=== PATIENT | female | born 1955 | race African-American/Black ===

== ENCOUNTER 2017-03-27 16:01 | Emergency (ER) | payer MEDICARE, MEDICAID ==
[~2017-03-27] VITALS: Ht 170.2 cm; Wt 83.0 kg
[~2017-03-27 16:01] MED LIST: ACET-182 PO; ACET325T9 PO; ACYC400T PO; ALBU2.5V5 NEB; ALPR1TAB2 PO; ALPR1TAB6 PO; AMIO200T2 PO; AMLO5TAB4 PO; ASPI-482 PO; ASPI325T11 PO; ASPI325T70 PO; ATOR40TA59 PO; ATROVENT HFA12.9 GM IH; BENZ100C15 PO; BISA10SU55 RC; BISM262O PO; BUDE0.5A NEB; CARV25TA PO; CARV25TA2 PO; CHOL100013 PO; CHOL10003 PO; CHOL500021 PO; CHOL500050 PO; CLOP75TA PO; DICL100G18 TP; DOCU100C28 PO; ESCITALOPRAM OX10 MG PO; FAMO20TA5 PO; FENT1PAT17 TP; FLUT12HF2 IH; FLUT9.9S NS; FURO80TA72 PO; GABA-585 PO; GUAI5SYR PO; IPRA3AMP NEB; LAMO25TA5 PO; LEVO25TA4 PO; LEVO50TA5 PO; LISI2.5T PO; LOVA40TA2 PO; MAG360OR24 PO; METH4TAB2 PO; METH4TAB6 PO; NA P133E2 RC; NICO10CA IH; NICO1PAT21 TD; NITR0.4T22 SL; NITR1PAT9 TD; OMEG1CAP6 PO; OMEP20CA9 PO; OXYC-327 PO; OXYC1TAB7 PO; OXYC1TAB8 PO; PNV1TABL25 PO; POLY17PO3 PO; POTA20TA4 PO; POTA20TA82 PO; POTA20TA84 PO; PROVENTIL HFA6.7 GM IH; QUET50TA5 PO; ROFL500T7 PO; SPIR25TA3 PO; TIOT18CA IH; TORS10TA3 PO; TORS20TA2 PO; TRIA15OI9 TP
[2017-03-27 16:30] VITALS: BP 122/69
[2017-03-27] MEDS ORDERED: LIDOCAINE 1% / SOD BICARB 8.4% 20 ML VIAL. IJ ONE (16:45)
[2017-03-27] MEDS ORDERED: fentaNYL PF VIAL 100 MCG/2 ML VIAL IM ONE (17:45)
--- NOTE | 2017-03-27 17:51 | PHYS DOC ---
Past Medical History Past Medical History: A-Fib, Anxiety, Asthma, CHF, Constipation, COPD, Depression, DVT, Hypertension, Hypothyroid, Renal Failure Additional Past Medical Histor: Aspiration PNA, resp.failure,A-flutter, dysphagia,Cardiac arrest, HERPES Past Surgical History: Hysterectomy, Pacemaker, Tonsillectomy, Other Additional Past Surgical Histo: Defibrillator, right BKA Alcohol Use: None Drug Use: None Social History Narrative: PT REPORTS FORMER COCAINE USE Adult General Chief Complaint Chief Complaint: ABSCESS HPI HPI Patient is a 62 year old female with history of depression, hypertension, COPD , 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 Patient states she's had a cyst there for 4 years. Patient states for the last 3 days the area has turned red and more swollen. Review of Systems Review of Systems Constitutional: Denies fever or chills [] Musculoskeletal: Denies back pain or joint pain [] Integument: left shoulder abscess. Neurologic: Denies headache, focal weakness or sensory changes [] Current Medications Current Medications Current Medications Medications (Trade) Dose Ordered Sig/Karl Start Time Stop Time Status Last Admin Dose Admin Ceftriaxone Sodium (Rocephin Im) 1 gm 1X ONCE 03/27/17 18:00 03/27/17 18:01 Fentanyl Citrate (Fentanyl 2ml Vial) 50 mcg 1X ONCE 03/27/17 17:45 03/27/17 17:46 DC 03/27/17 17:45 50 MCG Lidocaine HCl 20 ml 1X ONCE 03/27/17 18:00 03/27/17 18:01 Lidocaine/Sodium Bicarbonate (Buffered Lidocaine 1%) 20 ml 1X ONCE 03/27/17 16:45 03/27/17 16:46 DC 03/27/17 16:51 20 ML Allergies Allergies Allergies Coded Allergies Type Severity Reaction Last Updated Verified adhesive Allergy Intermediate 04/11/15 Yes Physical Exam Physical Exam Constitutional: Well developed, well nourished, no acute distress, non-toxic appearance. [] Skin: Left scapular with an abscess approximately 2 x 2 centimeters. The area is erythematous warm tender to palpate and very fluctuant. Back: No tenderness, no CVA tenderness. [] Extremities: No tenderness, no cyanosis, no clubbing, ROM intact, no edema. [] Neurologic: Alert and oriented X 3, normal motor function, normal sensory function, no focal deficits noted. [] Psychologic: Affect normal, judgement normal, mood normal. [] Current Patient Data Vital Signs Vital Signs Date Time Temp Pulse Resp B/P (MAP) Pulse Ox O2 Delivery O2 Flow Rate FiO2 03/27/17 17:45 18 96 Room Air 03/27/17 16:30 98.8 72 98.8 EKG EKG [] Radiology/Procedures Radiology/Procedures Indication: abscess of left scapula Procedure: The patient was positioned appropriately. Local anesthesia was 1% buffered lidocaine. An incision was then made over the apex of the lesion and moderate amount of bloody material was expressed. The drainage cavity was irrigated and covered with sterile gauze. The patients tetanus status updated as needed. The patient tolerated the procedure well. Complications: none.[] Course & Med Decision Making Course & Med Decision Making Pertinent Labs and Imaging studies reviewed. (See chart for details) Patient has left scapular abscess that was drained by me as noted in procedures. Tetanus is up-to-date. Discharge and Bactrim. Follow-up with PCP in 1-2 weeks. Dragon Disclaimer Dragon Disclaimer This electronic medical record was generated, in whole or in part, using a voice recognition dictation system. Departure Departure Impression: Primary Impression: Abscess of left shoulder Disposition: 01 HOME, SELF-CARE Condition: STABLE Referrals: ERNESTO GONZALEZ DO (PCP) Follow-up with your doctor in the next 7 days Patient Instructions: Abscess, Care After Additional Instructions: You were seen for left shoulder abscess. Keep the area clean and dry. Follow-up with your doctor in the next 7 days. Complete your antibiotics. Come back to the ED if symptoms worsen. Scripts Hydrocodone/Apap 5-325 (NORCO 5-325 TABLET) 1 Each Tablet 1-2 TAB PO Q4-6HRS, #12 TAB Prov: EVANGELIST KUMAR [employer] 03/27/17 Sulfamethoxazole/Trimethoprim (BACTRIM DS TABLET) 1 Each Tablet 1 TAB PO BID, #20 TAB Prov: EVANGELIST KUMAR [employer] 03/27/17 EVANGELIST KUMAR APRN Mar 27, 2017 17:51
[2017-03-27] MEDS ORDERED: SULF1TAB24 PO (17:54)
[2017-03-27] MEDS ORDERED: HYDR-971 PO (17:54)
[2017-03-27] MEDS ORDERED: LIDOCAINE 2% 20 ML VIAL. IJ ONE (18:00)
[2017-03-27] MEDS ORDERED: cefTRIAXone IM 1 GM VIAL IM ONE (18:00)
== END 2017-03-27 18:03 | disposition home or self-care (01) ==
LOC: ER 16:01
DX: L02.414 Cutaneous abscess of left upper limb (principal); I13.0 Hypertensive heart and chronic kidney disease with heart failure and stage 1 through stage 4 chronic kidney disease, or unspecified chronic kidney disease; N18.9 Chronic kidney disease, unspecified; I50.9 Heart failure, unspecified; I48.91 Unspecified atrial fibrillation; E03.9 Hypothyroidism, unspecified; J44.9 Chronic obstructive pulmonary disease, unspecified; Z86.718 Personal history of other venous thrombosis and embolism; Z90.710 Acquired absence of both cervix and uterus; Z95.0 Presence of cardiac pacemaker; Z95.810 Presence of automatic (implantable) cardiac defibrillator; Z89.442 Acquired absence of left ankle; Z89.441 Acquired absence of right ankle; Z90.89 Acquired absence of other organs; Z88.8 Allergy status to other drugs, medicaments and biological substances
CPT/HCPCS: 10060; 96372; 99283; J3010